=== PATIENT | male | born 1990 | race Caucasian/White ===

== ENCOUNTER 2023-05-02 06:46 | Emergency (ER) | payer OTHER ==
[~2023-05-02] VITALS: Ht 180.3 cm; Wt 82.0 kg
[~2023-05-02 06:46] MED LIST: PANTOPRAZOLE
[2023-05-02 06:47] VITALS: BP 121/75; PULSE 88; RESP 19; O2SAT 97
== END 2023-05-02 09:14 | disposition home or self-care (01) ==
LOC: ER 06:46
DX: S82.52XA Displaced fracture of medial malleolus of left tibia, initial encounter for closed fracture (principal); K21.9 Gastro-esophageal reflux disease without esophagitis; W22.8XXA Striking against or struck by other objects, initial encounter; Y93.89 Activity, other specified; Y92.89 Other specified places as the place of occurrence of the external cause; Y99.8 Other external cause status
CPT/HCPCS: 73610; 73630

== ENCOUNTER 2023-05-05 07:53 | Day surgery (SDC) | payer OTHER ==
[~2023-05-05] VITALS: Ht 180.3 cm; Wt 82.6 kg
[~2023-05-05 07:53] MED LIST changes: +BUPIVACAINE W/ EPINEPH 0.5% INJ 50ML MDV IJ ONE; +DexAMETHasone SOD PHOS 4 MG/1ML SDV INJ ONE; +LIDOCAINE 2% (LOCAL ANESTH.) PF 5ml SDV ONE; +SODIUM CHLORIDE LOCK 20 ML ONE; +ceFAZolin 1GM/50ML 100 ML IV ONE
[2023-05-05] MEDS ORDERED: ONDANSETRON HCL 4 MG/2 ML VIAL IV ONE (07:54)
[2023-05-05] MEDS ORDERED: BUPIVACAINE 0.25% INJ 50ML VIAL ONE (08:16)
[2023-05-05] MEDS ORDERED: BUPIVACAINE HCL 50 ML ONE (08:19)
[2023-05-05] MEDS ORDERED: BUPIVACAINE 0.5% P/F INJ 10 ML VIAL ONE (08:20)
[2023-05-05] MEDS ORDERED: fentaNYL CITRATE 100 MCG/2 ML VL ONE (08:22)
[2023-05-05] MEDS ORDERED: MIDAZOLAM HCL 2MG/2ML 2ml VIAL (1mg/ml) ONE (08:22)
[2023-05-05] MEDS ORDERED: MEPERIDINE HCL (50 MG/ML) 1 ML VIAL ONE (08:22)
[2023-05-05] MEDS ORDERED: PHENYLEPHRINE HCL 10 MG/ML VL IV ONE (08:30)
[2023-05-05] MEDS ORDERED: DexAMETHasone SOD PHOS 10MG/1ML VIAL INJ ONE (09:47)
[2023-05-05] MEDS ORDERED: LIDOCAINE HCL 1%(LOCAL ANESTH.) INJ 50ML MDV IJ ONE (09:52)
[2023-05-05 10:20] VITALS: PULSE 84; RESP 12; TEMP 98.4; O2SAT 96
[2023-05-05] MEDS ORDERED: PROPOFOL 10 MG/ML 20 ML IV ONE (10:20)
[2023-05-05] MEDS ORDERED: CEPH500C PO (10:36)
[2023-05-05] MEDS ORDERED: HYDR-4798 PO (10:36)
[2023-05-05] MEDS ORDERED: ePHEDrine SULFATE 50 MG/ML AMP IV PRN (10:45)
[2023-05-05] MEDS ORDERED: MIDAZOLAM HCL 2MG/2ML 2ml VIAL (1mg/ml) IV PRN (10:45)
[2023-05-05] MEDS ORDERED: LABETALOL HCL 5 MG/ML 4ML SYRINGE IV PRN (10:45)
[2023-05-05] MEDS ORDERED: ONDANSETRON HCL 4 MG/2 ML VIAL IV PRN (10:45)
[2023-05-05] MEDS ORDERED: HYDROmorphone HCL 2 MG/ML VL/or syr IV PRN (10:45)
[2023-05-05] MEDS ORDERED: MORPHINE SULFATE 4 MG/ML SYR/VIAL IV PRN (10:45)
[2023-05-05 11:15] VITALS: BP 121/85; PULSE 81; RESP 14; O2SAT 97
== END 2023-05-05 11:35 | disposition home or self-care (01) ==
LOC: SUR 07:53
PROVIDERS: ATTEND Student in an Organized Health Care Education/Training Program
DX: S82.52XA Displaced fracture of medial malleolus of left tibia, initial encounter for closed fracture (principal); V29.99XA Rider (driver) (passenger) of other motorcycle injured in unspecified traffic accident, initial encounter; Y93.89 Activity, other specified; Y92.89 Other specified places as the place of occurrence of the external cause; Y99.8 Other external cause status; Z88.2 Allergy status to sulfonamides; Z88.5 Allergy status to narcotic agent; Z79.891 Long term (current) use of opiate analgesic; Z98.890 Other specified postprocedural states
CPT/HCPCS: 27766; 73600; 76000; C1769; J0690; J1100; J2001; J2175; J2250; J2370; J2405; J2704; J3010; J3490